=== PATIENT | female | born 1985 | race Caucasian/White ===

== ENCOUNTER 2019-06-08 15:08 | Emergency (ER) | payer MEDICAID, SELFPAY ==
[2019-06-08 15:10] VITALS: BP 134/99; PULSE 89; RESP 16; TEMP 36.7; O2SAT 97; BMI 29.3
--- NOTE | 2019-06-08 16:41 | ED.VIS.GEN ---
History of Present Illness <AshleeDavid - Last Filed: 06/08/19 16:48> Informant: Patient Onset: Weeks - 2 weeks Context: Gradual Onset Timing: Continuous Quality: aching Location: right hear Current Severity: Moderate Maximum Severity: Moderate Worsened by: nothing Relieved by: nothing Associated Symptoms: Headache Narrative: 33-year-old female who denies any significant past medical history presents to the emergency department with right ear pain and headache. Patient was sent in here today from the urgent care for mastoiditis. Patient states that the urgent care told her that she has an infection in her bone that could spread to her brain and could be fatal and they threaten to have her come by squad if she refused to drive herself to the emergency department. Patient was seen at [facility] 15 days ago for headache and right ear pain. They performed a CT scan. She was diagnosed with mastoiditis. She was discharged on Augmentin. She continues to have her symptoms followed up with the urgent care today who advised her to present to the emergency department. She has not had a fever. She is not lightheaded or dizzy. No visual changes. No nausea or vomiting. No neck pain. No sore throat or congestion or cough. No visual changes, numbness tingling or weakness, difficulty with speech or ambulation or head trauma. Prior similar symptoms: Yes Recent Illness/Hospitalization: No <Jean Paul Rabago - Last Filed: 06/08/19 17:42> Chief Complaint: Headache Past Medical History <AshleeDavid - Last Filed: 06/08/19 16:48> Prior records reviewed: Yes Past Medical History: None Surgical History: - - Surgery for ectopic removal of left tube and ovary Lives: With Family Smoking Status: Never smoker <Jean Paul Rabago - Last Filed: 06/08/19 17:42> - Allergies and Home Meds Allergies/Adverse Reactions: Allergies methylphenidate [From Ritalin] Adverse Reaction (Verified 06/08/19 15:12) Other Primary Care Physician: Care Physician,No Primary [Primary Care Provider] - Review of Systems All systems negative except as indicated General: Denies: Chills, Fever Eyes: Denies: Visual changes - left, Visual changes - right, Visual changes - bilaterally ENT: Reports: Right ear pain. Denies: Left ear pain, Rhinorrhea, Sore throat Cardiovascular: Denies: Chest pain Respiratory: Denies: Dyspnea, - Gastrointestinal: Denies: Abdominal pain, Nausea, Vomiting, Diarrhea Genitourinary: Denies: Dysuria Musculoskeletal: Denies: Neck pain, Back pain Skin: Denies: Rash, Abscess Neurological: Reports: Headache. Denies: Weakness, Parasthesia, Numbness <Jean Paul Rabago - Last Filed: 06/08/19 17:42> Physical Exam Vital Signs/Narrative: Vital Signs Temp Pulse Resp BP Pulse Ox 06/08/19 15:10 98.0 F 89 16 134/99 H 97 <David Rosado - Last Filed: 06/08/19 16:48> Vital Signs/Narrative: Vital Signs Temp Pulse Resp BP Pulse Ox 06/08/19 15:10 98.0 F 89 16 134/99 H 97 Inital Vital Signs reviewed: Yes General: Well nourished, Well developed, No Acute Distress Head: Normocephalic, Atraumatic Eyes: Perrl, EOMI ENT: Moist mucous membranes, - - Normal inspection of left external ear, ear canal and tympanic membrane. No mastoid tenderness or redness on the left. No mastoid tenderness or redness on the right. There is no evidence of otitis externa but she does have a significant cerumen impaction right ear. She has no cervical pre-or post auricular lymphadenopathy. Neck: Supple, Nontender - Patient has normal active range of motion of her neck in all directions without difficulty. No meningeal signs., No lymphadenopathy, No JVD Cardiovascular: Regular rate, Regular rhythm, No murmurs Respiratory: No distress, CTA bilaterally, Chest nontender Abdomen: Soft, Nontender, Nondistended, Normal bowel sounds, No masses Back: Nontender, Normal Inspection Extremities: Nontender, No edema Skin: Normal color, No rash Neurological: Alert, Oriented x3, Normal Strength, Normal Sensation, Normal Gait Psychological: Normal affect <Jean Paul Rabago - Last Filed: 06/08/19 17:42> Diagnostic/Tx/Re-eval - Medical Decision Making Seen and evaluated independently and in conjunction with physician assistant director of security. Agree with notes above unless documented otherwise. Patient is well-appearing, her vital signs are normal. She has no clinical signs of mastoiditis at this time. She is not a diabetic. She is not especially tender at the mastoid process, which is normal-appearing without any swelling or erythema. She is more tender in the caudal periauricular area without any palpable lymph nodes, and even more pain with manipulation of the pinna. She states she has been having ear discharge. She was placed on amoxicillin for otitis media and mastoiditis, and states that it did not help at all even after finishing the complete course. If she still has a persistent otitis, which we cannot tell at this time since she has a deep dense cerumen impaction, it would be more appropriate to start her on Augmentin than amoxicillin as in adult it would not cover H. influenza. We will remove the cerumen to the best of our ability, we are awaiting nursing to irrigate since and removing part of it the patient had difficulty tolerating it as it is very deep and densely packed in, and attempts to visualize her tympanic membrane for further evaluation. She states she has been having discharge, and that could be from a perforation. Or she could have a combination of otitis media and otitis externa, in which case we would be happy to put her on a more appropriate antibiotic and antibiotic drops. She does not have any significant canal edema or signs of discharge other than cerumen. <David Rosado - Last Filed: 06/08/19 16:48> - Medical Decision Making Initially had tried to remove the cerumen with a curette patient did not tolerate well therefore Debrox was instilled nursing staff irrigated ear on my repeat inspection there was still a significant amount of cerumen and I was having difficulty visualizing the tympanic membrane. I then again used the curette to try to remove more earwax. Before I was able to remove all of the earwax to entirely visualize the tympanic membrane patient requested I stop and would like to be discharged. I advised her I was unable to see her tympanic membrane to rule out a perforation. She understands this and still requests discharge. Because we were unable to visualize this we will cover her with Augmentin and Cortisporin otic. At this time clinically the patient is well-appearing she has no meningeal signs she is alert and oriented x3 she has a nonfocal neurological exam and I do not feel that admission repeat CT scan of her brain or other work-up is indicated. She will be referred to ENT. <Jean Paul Rabago - Last Filed: 06/08/19 17:42> ED Disposition <David Rosado - Last Filed: 06/08/19 16:48> <Jean Paul Rabago - Last Filed: 06/08/19 17:42> - Plan for ED Patient: Disposition: Home or Assisted Living Diagnosis: Otalgia of right ear Prescriptions: Amox/Clavulanate Tablet [Augmentin Tablet] 875 mg PO Q12H #20 tab Prescription Printed Neomyc/Colist/Hydrocort/Thonzn [Cortisporin-Tc Ear Suspension] 10 ml OT TID #1 drops.susp Prescription Printed Referrals: Care Physician,No Primary [Primary Care Provider] - Bárbara Norman DO [STAFF PHYSICIAN] -
[2019-06-08] MEDS: Carbamide Peroxide 15 ML Bottle 5 DRP OTIC (17:00)
[2019-06-08 17:39] VITALS: RESP 16
== END 2019-06-08 17:54 | disposition home or self-care (01) ==
PROVIDERS: Emergency Provider Physician Assistant Medical
DX: H92.01 Otalgia, right ear (principal); H61.21 Impacted cerumen, right ear
CPT/HCPCS: 99283

== ENCOUNTER 2019-07-04 11:44 | Emergency (ER) | payer MEDICAID, SELFPAY ==
[2019-07-04 11:47] VITALS: BP 131/81; PULSE 83; RESP 16; TEMP 36.4; O2SAT 96; BMI 32.5
--- NOTE | 2019-07-04 12:08 | CT_ITS ---
STUDY: CT BRAIN WITHOUT CONTRAST REASON FOR EXAM: Female, 33 years old. Headaches. Right earache. RADIATION DOSAGE (If Supplied By Facility): CTDIvol = ( 44.99 ) mGy, DLP = ( 745.49 ) mGycm TECHNIQUE: Transaxial CT imaging of the brain was performed without administration of intravenous contrast material. Individualized dose optimization techniques were used for this CT. COMPARISON: No relevant priors. FINDINGS: Normal soft tissue structures. Normal calvarium. Normal size ventricles and extra-axial spaces for the patient's age. Normal white matter tracts of the cerebral hemispheres. Normal basal ganglia and thalami. Normal brainstem. Normal cerebellum. There is no intracranial hemorrhage. There are no findings of an acute ischemic infarction. Normal visualized paranasal sinuses. CT/Brain/Head without Contrast IMPRESSION: Normal unenhanced CT scan of the brain. Electronically Signed: Andrew Mayers, at 13:11 EST , Service support ,
[2019-07-04] MEDS: Morphine 4 MG/ML Syringe IV (12:38)
[2019-07-04] MEDS: Ondansetron 4 MG/2 ML Vial IV (12:38)
[2019-07-04] MEDS: Ketorolac 30 MG/ML Syringe IV (12:38)
[2019-07-04] MEDS: 0.9% Normal Saline 1,000 ML 150 ML IV (12:39)
[2019-07-04 12:43] LABS: Absolute Neutrophil Count 3.9 X10^3/uL (2.0-7.7); Basophil# 0.03 X10^3/uL; Basophil% 0.5 % (0-1); Eosinophil# 0.17 X10^3/uL; Eosinophils% 2.6 % (0-5); Hematocrit 42.3 % (37-47); Lymphocyte % 29.3 % (19-41); Mean Corp Hgb Conc 33.1 g/dL (32-36); Mean Corpuscular Hgb 30.7 pg (27.0-32.0); Mean Corpuscular Volume 92.8 fL (81-99); Mean Platelet Vol. 10.6 fl (6.2-12.0); Monocyte# 0.44 X10^3/uL; Monocyte% 6.8 % (0-10); NRBC Flagged by Analyzer 0 % (0-5); Neutrophil # 3.92 X10^3/uL (2.7-7.7); Neutrophil % 60.5 % (47-70); Platelet Count 250 K/mm3 (150-450); RBC Distribution Width CV 13.2 % (11.6-14.6); RBC Distribution Width SD 45.6 fl (35.1-43.9); Red Blood Count 4.56 M/mm3 (4.2-5.4); White Blood Count 6.5 K/mm3 (4.4-11.0)
--- NOTE | 2019-07-04 12:43 | CT_ITS ---
INDICATION: Headaches. Right earache and changes in hearing. EXAMINATION: CT IAC TEMPORAL BONES - Internal Auditory Canals Technique: routine noncontrast CT protocol was performed of the internal auditory canals and temporal bones. 2-D reformats were performed by the technologist. A radiation dose optimization technique was used for this scan. IV Contrast dosage and agent: None. COMPARISON: None. FINDINGS: RIGHT SIDE: No fracture. SUPERFICIAL SOFT TISSUES: Unremarkable. MASTOID AIR CELLS: Opacification of the right mastoid air cells. EXTERNAL AUDITORY CANALS: Clear. MIDDLE EAR CAVITIES: Mild degree of mucosal thickening of the middle year cavity. Ossicles and scutum intact. INTERNAL AUDITORY CANALS: Unremarkable bilateral internal auditory canals. No osseous erosion or widening of the canal. INNER EAR: Unremarkable cochlea, vestibule and semicircular canals. LEFT SIDE: No fracture. SUPERFICIAL SOFT TISSUES: Unremarkable. MASTOID AIR CELLS: Well aerated, unremarkable. EXTERNAL AUDITORY CANALS: Clear. MIDDLE EAR CAVITIES: Well aerated. Ossicles and scutum intact. INTERNAL AUDITORY CANALS: Unremarkable bilateral internal auditory canals. No osseous erosion or widening of the canal. INNER EAR: Unremarkable cochlea, vestibule and semicircular canals. VISUALIZED BRAIN AND POSTERIOR FOSSA: Cerebello-pontine angles are unremarkable. CT/Orb Sella Post Fossa Ear w/o IMPRESSION: Opacification of the right mastoid air cells with mild degree of mucosal thickening of the right middle ear cavity. Electronically Signed: Andrew Mayers, at 13:18 EST , Service support ,
[2019-07-04 12:44] VITALS: BP 131/81; PULSE 83; RESP 16; TEMP 36.4; O2SAT 96
[2019-07-04 12:54] LABS: Anion Gap 4 (5-15); BUN 7 mg/dL (7-18); BUN/Creat Ratio 7.1 RATIO (10-20); Calcium,Total 8.8 mg/dL (8.5-10.1); Chloride 108 mmol/L (98-107); Creatinine, Serum 0.99 mg/dL (0.55-1.02); EST Glomerular Filtration Rate 68 mL/min (>60); Est Glom Filt Rate - Afr Amer 82 mL/min (>60); Estimated Creatinine Clearance 83.68 ml/min; Glucose 91 mg/dL (74-106); Potassium 3.9 mmol/L (3.5-5.1); Sodium Level 139 mmol/L (136-145)
--- NOTE | 2019-07-04 15:25 | ED.VIS.GEN ---
History of Present Illness Chief Complaint: Headache Detail of Chief Complaint: Right ear pain Informant: Patient Onset: Month(s) - 2+ months Current Severity: Moderate Maximum Severity: Severe Narrative: Patient presents with pain to the right ear and mastoid air cells for the last 2+ months. She had a CAT scan done naproxen to have months ago that showed evidence of mastoiditis. Patient has been on multiple antibiotics since that time. She states she continues to have pain. Her insurance just changed July 03 and she is planning on following up with her ENT. She has not noted fever or chills. She does not have rhinorrhea or throat pain. - Past Medical History (1) Kidney stones Status: Chronic (2) Anxiety Status: Chronic Past Medical History - Allergies and Home Meds Allergies/Adverse Reactions: Allergies methylphenidate [From Ritalin] Adverse Reaction (Verified 07/04/19 11:46) Other Prior records reviewed: Yes Surgical History: - - Surgery for ectopic removal of left tube and ovary Smoking Status: Never smoker Review of Systems General: Denies: Chills, Fever Eyes: Denies: Visual changes - bilaterally ENT: Reports: Right ear pain. Denies: Rhinorrhea, Sore throat Cardiovascular: Denies: Chest pain Respiratory: Denies: Dyspnea, Cough Gastrointestinal: Denies: Abdominal pain, Nausea, Vomiting, Diarrhea Genitourinary: Denies: Dysuria Musculoskeletal: Denies: Myalgias Skin: Denies: Wounds Neurological: Denies: Headache Allergy: Denies: Uticaria Physical Exam Vital Signs/Narrative: Vital Signs Temp Pulse Resp BP Pulse Ox 07/04/19 12:44 97.6 F L 83 16 131/81 H 96 07/04/19 11:47 97.6 F L 83 16 131/81 H 96 Inital Vital Signs reviewed: Yes General: Well nourished, Well developed Head: Normocephalic Eyes: Perrl, EOMI ENT: - - Minimal edema to the external ear canal. TM is unremarkable. Patient does have tenderness to palpation of the mastoid air cells. There is no erythema or edema over this area. Neck: Supple Cardiovascular: Regular rate, Regular rhythm Respiratory: No distress, CTA bilaterally Abdomen: Soft, Nontender Extremities: Nontender Skin: Normal color Neurological: Alert, Oriented x3 Psychological: Normal affect Diagnostic/Tx/Re-eval Impressions Brain CT 07/04/19 12:08 IMPRESSION: Normal unenhanced CT scan of the brain. Electronically Signed: Andrew Mayers, at 13:11 EST , Service support , CT Orbit Sella Inner 07/04/19 12:43 IMPRESSION: Opacification of the right mastoid air cells with mild degree of mucosal thickening of the right middle ear cavity. Electronically Signed: Andrew Mayers, at 13:18 EST , Service support , 07/04/19 12:08 Brain/Head without Contrast [CT] Stat 07/04/19 12:43 Orb Sella Post Fossa Ear w/o [CT] Stat Laboratory Results 07/04/19 07/04/19 12:28 12:28 WBC 6.5 RBC 4.56 Hgb 14.0 Hct 42.3 MCV 92.8 MCH 30.7 MCHC 33.1 RDW Std Deviation 45.6 H RDW Coeff of Christina 13.2 Plt Count 250 MPV 10.6 Immature Gran % (Auto) 0.300 Neut % (Auto) 60.5 Lymph % (Auto) 29.3 [place] % (Auto) 6.8 Eos % (Auto) 2.6 Baso % (Auto) 0.5 Absolute Neuts (auto) 3.9 Absolute Lymphs (auto) 1.90 Nucleated RBC % 0 Sodium 139 Potassium 3.9 Chloride 108 H Carbon Dioxide 27.0 Anion Gap 4 L BUN 7 Creatinine 0.99 Estim Creat Clear Calc 83.68 Est GFR (MDRD) Af Amer 82 Est GFR (MDRD) Non-Af 68 BUN/Creatinine Ratio 7.1 L Glucose 91 Calcium 8.8 - Medical Decision Making Patient was given a dose of morphine, Zofran, Toradol, and IV fluids while here. Test results are discussed with the patient. I spoke with Dr. Cade, on-call for ENT. He asked the patient continue on her Bactrim and follow-up with him in the office. She will call tomorrow for appointment. ED Disposition - Plan for ED Patient: Disposition: Home or Assisted Living Diagnosis: Mastoiditis Referrals: Gregory Cade MD [STAFF PHYSICIAN] - As soon as possible Additional Instructions: Continue your Bactrim. Follow-up with Dr Cade as soon as possible.
[2019-07-04 15:36] VITALS: BP 121/80; PULSE 77; RESP 14; O2SAT 97
== END 2019-07-04 15:38 | disposition home or self-care (01) ==
PROVIDERS: Emergency Provider Emergency Medicine; Family Provider Family Medicine; PCP Family Medicine
DX: H70.91 Unspecified mastoiditis, right ear (principal); F41.9 Anxiety disorder, unspecified; Z87.442 Personal history of urinary calculi; Z79.899 Other long term (current) drug therapy
CPT/HCPCS: 70450; 70480; 80048; 85025; 96361; 96374; 96375; 99283; J7030; J2405

== ENCOUNTER 2019-07-06 15:12 | Emergency (ER) | payer MEDICAID, SELFPAY ==
[2019-07-06 15:13] VITALS: BP 136/80; PULSE 99; RESP 19; TEMP 36.9; O2SAT 95; BMI 34.0
--- NOTE | 2019-07-06 15:37 | RAD_ITS ---
STUDY: X-RAY CHEST REASON FOR EXAM: Female, 33 years old. Sinus congestion, sore throat and fever. Currently being treated for mastoiditis on Bactrim. TECHNIQUE: 2 views COMPARISON: None. FINDINGS: The lungs are clear and expanded. There is no demonstrated pleural abnormality. Normal size heart. Normal mediastinum and suzan. Normal visualized pulmonary arteries. Normal visualized aortic arch and descending thoracic aorta. Normal visualized thoracic spine. Normal visualized ribs, clavicles, and shoulders. There is no demonstrated abnormality of the visualized soft tissue structures of the upper abdomen. RAD/Chest PA and Lateral IMPRESSION: Normal x-ray examination of the chest. Electronically Signed: Lana Smith MD at 16:05 EST , Service support ,
--- NOTE | 2019-07-06 15:38 | ED.VIS.GEN ---
History of Present Illness Chief Complaint: Cold Sx Informant: Patient Onset: - - Depending on symptom duration varies Context: Sudden Onset Timing: Continuous Quality: Constant right ear pain and postauricular pain, bad throat pain Location: Right ear, throat and chest Current Severity: Mild Maximum Severity: Severe Worsened by: Breathing Relieved by: Nothing Associated Symptoms: Subjective fever Narrative: Patient is a 33-year-old woman who was seen on July 04 and diagnosed with right mastoiditis and right otitis media. She has been on numerous antibiotics. She is presently on Bactrim. She has an appointment with ENT. She states she called Dr. Cade and recommended calling her primary care physician. Primary care physician referred her to the emergency department. She complains of headache, rhinorrhea, congestion, sore throat, cough. She is a smoker. She denies neck stiffness or neck pain. She denies photophobia. She has not been immunized for influenza. Prior similar symptoms: Yes Recent Illness/Hospitalization: Yes - Past Medical History (1) Anxiety Status: Chronic (2) Kidney stones Status: Chronic Past Medical History - Allergies and Home Meds Allergies/Adverse Reactions: Allergies methylphenidate [From Ritalin] Adverse Reaction (Verified 07/04/19 11:46) Other Primary Care Physician: Yrn Lemos MD [Primary Care Provider] - Prior records reviewed: Yes Surgical History: - - Surgery for ectopic removal of left tube and ovary Lives: Alone Smoking Status: Never smoker Alcohol: None Drugs: None Review of Systems General: Reports: Fever, Subjective. Denies: Chills, Malaise, Sweats Eyes: Denies: Visual changes - bilaterally, Blurred Vision - bilaterally, Diplopia ENT: Reports: Right ear pain, Rhinorrhea, Sore throat Cardiovascular: Reports: Chest pain. Denies: Palpitations, Heart racing Respiratory: Reports: Dyspnea, Cough. Denies: Sputum, Dyspnea on exertion Gastrointestinal: Denies: Abdominal pain, Nausea, Vomiting, Diarrhea Genitourinary: Denies: Dysuria, Hematuria, Frequency Musculoskeletal: Reports: Myalgias. Denies: Arthralgias, Neck pain, Back pain, Swelling, Extremity Pain Skin: Denies: Rash, Wounds Neurological: Reports: Headache. Denies: Weakness, Parasthesia, Numbness Physical Exam Vital Signs/Narrative: Vital Signs Temp Pulse Resp BP Pulse Ox 07/06/19 15:13 98.5 F 99 19 H 136/80 H 95 Inital Vital Signs reviewed: Yes General: Well nourished, Well developed, Obese, - - Appears ill. Head: Normocephalic, Atraumatic Eyes: Perrl, EOMI. Negative for: Pale conjunctiva, Scleral icterus ENT: Moist mucous membranes, TM's clear - There is evidence of serous otitis on the right side. There is dullness of the landmarks and TM., Nasal congestion. Negative for: No rhinorrhea, Sinus tenderness Neck: Supple, Nontender, No lymphadenopathy, No JVD, - - Trachea is midline. There is no stridor. There is no discomfort with movement of the trachea. Cardiovascular: Regular rate, Regular rhythm, No murmurs, Normal S1, Normal S2 Respiratory: No distress, CTA bilaterally, Chest nontender Rectal: Deferred Back: Nontender, Normal Inspection. Negative for: CVA tenderness, Spinal tenderness Extremities: Nontender, No edema Skin: Normal color, No rash, No Trauma. Negative for: Cyanosis, Diaphoresis, Jaundice Neurological: Alert, Oriented x3, Cranial nerves II-XII grossly intact, Normal Strength, Normal Sensation, Normal DTR Psychological: Depressed, Tearful Diagnostic/Tx/Re-eval Chest X-Ray - ED: 2 View, Read by ED Physician, Normal, Heart, Lungs, Mediastinum, Bony Structures, No Acute Disease, Chronic Changes, - - read at 1555 by me. Impressions Chest X-Ray 07/06/19 15:37 IMPRESSION: Normal x-ray examination of the chest. Electronically Signed: Lana Smith MD at 16:05 EST , Service support , 07/06/19 15:37 Chest PA and Lateral [RAD] Stat 07/06/19 16:00 Mucosa - Nasopharyngeal Influenza Types A,B Direct FA (GABI) - Final - Medical Decision Making We will obtain swab for influenza a and B and chest x-ray. Otherwise patient has a viral upper restaurant infection. ED Disposition - Plan for ED Patient: Disposition: Home or Assisted Living Diagnosis: Upper respiratory infection with cough and congestion, Mastoiditis of right side Instructions: BRONCHITIS, No Antibiotic (Adult) Referrals: Yrn Lemos MD [Primary Care Provider] - 10-14 Days if not better Additional Instructions: Keep your scheduled appointment with Dr. Cade for Thursday, June 12.
--- NOTE | 2019-07-06 15:57 | NURSING ---
NO OLD EKGS
[2019-07-06 17:25] VITALS: O2SAT 95
== END 2019-07-06 17:25 | disposition home or self-care (01) ==
PROVIDERS: Emergency Provider Emergency Medicine; Family Provider Family Medicine; PCP Family Medicine
DX: H70.91 Unspecified mastoiditis, right ear (principal); J02.9 Acute pharyngitis, unspecified; H65.91 Unspecified nonsuppurative otitis media, right ear; E66.9 Obesity, unspecified; F41.9 Anxiety disorder, unspecified; Z79.2 Long term (current) use of antibiotics; Z87.442 Personal history of urinary calculi; Z79.899 Other long term (current) drug therapy
CPT/HCPCS: 71046; 87804; 99283

== ENCOUNTER 2019-09-26 17:40 | Emergency (ER) | payer MEDICAID, SELFPAY ==
[2019-09-26 17:41] VITALS: BP 151/85; PULSE 107; RESP 16; TEMP 36.6; O2SAT 100; BMI 33.9
--- NOTE | 2019-09-26 18:25 | ED.VISSUMM ---
- ER Visit Summary Date of Service: 09/26/19 Chief Complaint: Vaginal bleeding and pelvic pain History of Present Illness: The patient is a 34 F history of anxiety and depression. Patient had a prior ectopic. She is AB 4 with those being miscarriages and one prior ectopic with removal of the tube. Patient states that she is had intermittent pelvic pain for weeks and vaginal bleeding. Her last menstrual period went from September 12 the . She started bleeding again the other day and today was bleeding clots and having more pain. She was seen in her FREELANCE PROGRAMMER/APP DEVELOPER physician's office had an ultrasound. The pain got worse she called them and they sent her to the ER. She denies any dysuria. No vaginal discharge. Physical Examination: Young female no acute distress vital signs stable afebrile. HEENT exam unremarkable. Neck nontender no lymphadenopathy. Lungs clear to auscultation. Heart regular rhythm rate about 105 no murmur. Abdomen obese. Soft. Suprapubic tenderness only. No peritoneal signs. Right upper and right lower quadrant unremarkable. She is moving all 4 extremities. Back nontender. Neurologically she is awake and alert with no focal motor deficits. Female nurse present in room. External exam unremarkable. No lesions. No rashes. Speculum exam small amount of blood in the vaginal vault. Dark blood. Mild active bleeding. No clots. Bimanual uterine tenderness otherwise unremarkable. No obvious masses. Test Results: CBC shows no acute abnormality. White count 9. Hemoglobin 15. Hematocrit 45. Serum test is negative Emergency Department Course and Treatment: Patient treated with IV fluids, morphine and Zofran for the pain. Pelvic exam will be performed with nurse present in the room. Treatment Plan: Follow-up with FREELANCE PROGRAMMER/APP DEVELOPER. Return if worse. Motrin and/or Tylenol for pain. Disposition: Discharge Impression: Acute vaginal bleeding and pelvic pain of uncertain etiology This note was generated with [employer] dictation software. It may contain incorrect words, spelling, and punctuation that were not noted in review of the chart prior to signing ED Disposition - Plan for ED Patient: Referrals: Yrn Lemos MD [NON-STAFF] -
[2019-09-26] MEDS: 0.9% Normal Saline 1,000 ML 1000 ML IV (18:34)
[2019-09-26] MEDS: Ondansetron 4 MG/2 ML Vial IV (18:34)
[2019-09-26 18:35] LABS: Hematocrit 45.7 % (37-47); Hemoglobin 15.3 g/dL (12.0-15.0); Mean Corp Hgb Conc 33.5 g/dL (32-36); Mean Corpuscular Hgb 30.6 pg (27.0-32.0); Mean Corpuscular Volume 91.4 fL (81-99); Mean Platelet Vol. 11.1 fl (6.2-12.0); Platelet Count 273 K/mm3 (150-450); RBC Distribution Width CV 13.6 % (11.6-14.6); White Blood Count 9.4 K/mm3 (4.4-11.0)
[2019-09-26] MEDS: morphine 8 MG/ML Syringe 6 MG IV (18:35)
[2019-09-26 18:57] LABS: Internal QC Validated? YES +Cl - CLEAR BKGD; Pregnancy, Serum, hCG Quali. NEGATIVE Negative
--- NOTE | 2019-09-26 19:25 | ED.DEP ---
ED Disposition - Plan for ED Patient: Disposition: Home or Assisted Living Instructions: Dysfunctional Uterine Bleeding Referrals: Brook Vera MD [STAFF PHYSICIAN] - As soon as possible Additional Instructions: Fluids and rest. Tylenol and Motrin for pain. Follow-up with your BANKING MANAGEMENT CONSULTING MANAGER office to get your ultrasound results and come up with a plan. Today your blood counts were normal.
[2019-09-26 19:40] VITALS: BP 140/75; PULSE 85; RESP 16; O2SAT 97
== END 2019-09-26 19:35 | disposition home or self-care (01) ==
PROVIDERS: Emergency Provider Emergency Medicine; PCP Physician Assistant
DX: N93.9 Abnormal uterine and vaginal bleeding, unspecified (principal); R10.2 Pelvic and perineal pain; Z72.0 Tobacco use
CPT/HCPCS: 84703; 85027; 96361; 96374; 96375; 99284; J7030; A4216; J2405

== ENCOUNTER 2020-02-26 22:16 | Emergency (ER) | payer MEDICAID, SELFPAY ==
[2020-02-26 22:17] VITALS: BP 146/91; PULSE 108; RESP 16; TEMP 36.8; O2SAT 96; BMI 31.0
--- NOTE | 2020-02-26 22:34 | EKG12_ITS ---
Test Reason : EDEMA Blood Pressure : / mmHG Vent. Rate : 085 BPM Atrial Rate : 085 BPM P-R Int : 146 ms QRS Dur : 080 ms QT Int : 382 ms P-R-T Axes : 046 043 045 degrees QTc Int : 454 ms Normal sinus rhythm Low voltage QRS Borderline ECG Confirmed by MONCHO MORA, ANOOP ([id number]), technical writer and editor LAYLA OVERTON ([id number]) on 02/27/2020 1:25:17 PM Referred By: DR JAIN Confirmed By:ANOOP IVAN MD
--- NOTE | 2020-02-26 22:35 | ED.DCSUM_ITS ---
- ER Visit Summary Date of Service: 02/26/20 Chief Complaint: Bilateral leg swelling History of Present Illness: The patient is a [address] Cervantes. She reports she has bilateral leg swelling that began 2 days ago. It is worse today. She describes an aching pain that is 6 out of 10 at worst and 4-10 currently. Is worsened by walking relieved by rest. She reports that she has a history of DVT when she was 16 years ago. She has not had a DVT since that time. No recent travel. She does have a family history of DVT. She does smoke. She is not on control pills. Review of systems patient complains that she always has a little headache. She denies any other complaints. Physical Examination: Vitals: Stable. Afebrile. General: Well-nourished and well-developed. Head: Normocephalic atraumatic. Neck: Supple, no lymphadenopathy. No JVD. Nontender. Cardiovascular: Regular rate and rhythm. No murmurs. Respiratory: No respiratory distress. Clear to auscultation bilaterally. Abdominal: Soft, nontender, nondistended, normal bowel sounds. No guarding, rebound, or peritoneal signs. Back: Nontender. Extremities: 1+ pitting edema lower extremities bilaterally. Mild tenderness palpation over calves bilaterally. There is no erythema or warmth to suggest infection. She is a 2+ dorsalis pedis pulse bilaterally. Skin: Normal color, no rash. Neurologic: Alert and oriented ?3. Cranial nerves II through XII are intact. Normal strength and sensation. Psych: Normal affect. Test Results: EKG is sinus at 85 with no acute changes. Troponin is negative. 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 D-dimer is negative. test is negative. LFTs are normal. CBC is normal. Chem-7 shows a creatinine 1.3. Emergency Department Course and Treatment: Patient is rested comfortably without complaint. Treatment Plan: Patient reports that she is to have an inhaler no longer does. She will be discharged with an albuterol MDI and a prescription for Lasix 20 mg p.o. daily x5 days. Instructed follow-up with her primary care physician in 3 to 5 days for another exam. Return to the emergency department for any worsening symptoms. Disposition: To home in improved and stable condition. Impression: 1. Peripheral edema. This note was generated with MDconnectMEation software. It may contain incorrect words, spelling, and punctuation that were not noted in review of the chart prior to signing ED Disposition - Plan for ED Patient: Instructions: ED Peripheral Edema, Bilateral Prescriptions: Furosemide [Lasix] 20 mg PO DAILY #5 tab Prescription Printed Albuterol Inhaler [Ventolin Hfa] 2 puff INHALATION Q4H PRN PRN #1 inhaler PRN Reason: Wheezing Prescription Printed Referrals: Nidia Cervantes PA [Primary Care Provider] - 3-5 Days
[2020-02-26 23:04] LABS: Absolute Lymphocyte Count 2.79 X10^3/uL (0.83-4.51); Absolute Neutrophil Count 5.3 X10^3/uL (2.0-7.7); Basophil# 0.04 X10^3/uL; Basophil% 0.4 % (0-1); Eosinophil# 0.34 X10^3/uL; Eosinophils% 3.7 % (0-5); Hematocrit 42.6 % (37-47); Hemoglobin 13.9 g/dL (12.0-15.0); Lymphocyte # 2.79 X10^3/ul (4.0); Lymphocyte % 30.6 % (19-41); Mean Corp Hgb Conc 32.6 g/dL (32-36); Mean Corpuscular Hgb 30.9 pg (27.0-32.0); Mean Corpuscular Volume 94.7 fL (81-99); Mean Platelet Vol. 10.2 fl (6.2-12.0); Monocyte# 0.66 X10^3/uL; Monocyte% 7.2 % (0-10); NRBC Flagged by Analyzer 0 % (0-5); Neutrophil # 5.25 X10^3/uL (2.7-7.7); Neutrophil % 57.8 % (47-70); Platelet Count 295 K/mm3 (150-450); RBC Distribution Width CV 14.4 % (11.6-14.6); White Blood Count 9.1 K/mm3 (4.4-11.0)
[2020-02-26 23:13] LABS: Internal QC Validated? YES +Cl - CLEAR BKGD; Pregnancy, Serum, hCG Quali. NEGATIVE Negative
[2020-02-26 23:16] LABS: D-Dimer Quantitative (DVT/PE) 0.44 FEU/ug/m (0.27-0.49)
[2020-02-26 23:21] LABS: AST(SGOT) 33 U/L (15-37); Alanine Aminotransfer ALT/SGPT 45 U/L (13-56); Albumin, Serum 3.4 g/dL (3.2-5.0); Alkaline Phosphatase 86 U/L (45-117); Anion Gap 4 (5-15); BUN 11 mg/dL (7-18); BUN/Creat Ratio 8.5 RATIO (10-20); Calcium,Total 8.8 mg/dL (8.5-10.1); Chloride 107 mmol/L (98-107); EST Glomerular Filtration Rate 49 mL/min (>60); Est Glom Filt Rate - Afr Amer 60 mL/min (>60); Estimated Creatinine Clearance 63.12 ml/min; Globulin 3.5 g/dL (2.2-4.2); Glucose 92 mg/dL (74-106); Protein, Total 6.9 g/dL (6.4-8.2); Sodium Level 139 mmol/L (136-145)
[2020-02-26 23:24] LABS: BNP,B-Type NATRIURETIC PEPTIDE 28.1 pg/mL (0-100)
== END 2020-02-27 00:23 | disposition home or self-care (01) ==
LOC: ED 22:37
PROVIDERS: Emergency Provider Emergency Medicine; PCP Physician Assistant
DX: R60.0 Localized edema (principal); F17.200 Nicotine dependence, unspecified, uncomplicated; F41.9 Anxiety disorder, unspecified; Z86.718 Personal history of other venous thrombosis and embolism; Z79.899 Other long term (current) drug therapy
CPT/HCPCS: 80053; 83880; 84484; 84703; 85025; 85379; 93005; 99284; A4216

== ENCOUNTER 2021-01-04 23:09 | Emergency (ER) | payer MEDICAID, SELFPAY ==
[2021-01-04 23:10] VITALS: BP 143/71; PULSE 108; RESP 20; TEMP 36.6; O2SAT 96; BMI 34.7
--- NOTE | 2021-01-04 23:16 | RAD_ITS ---
HISTORY: Trauma, foot injury EXAMINATION/TECHNIQUE: XR Foot Min 3 Views: COMPARISON: None FINDINGS: BONES/JOINTS: No acute fracture or dislocation. Preservation of the joint spaces. No sclerotic or destructive changes observed. SOFT TISSUES: No soft tissue swelling or gas. No radiopaque foreign body. RAD/Foot min 3 Views IMPRESSION: No acute bony abnormality. at 2347 Reported and signed by: James Gonzales MD Electronically Signed: James Gonzales MD at 23:46 EDT Tel , Service support ,
--- NOTE | 2021-01-04 23:17 | EDS_ITS ---
HPI History of Present Illness HPI Narrative: 35-year-old female was walking when she ran into a push mower lifting it up and then it came back down onto her left foot. This happened approximately 25 minutes prior to arrival. She denies any other injuries. She denies any bleeding. Chief Complaint: Lower Extremity Injury [facility] Medical History (Updated 01/04/21 @ 23:[address] Yasmany Thomson DO) Anxiety Kidney stones Home Medications Atorvastatin Calcium 20 mg PO DAILY 09/26/19 [History Last Taken 09/26/19] albuterol sulfate 2 puff INHALATION Q4H PRN PRN #1 inhaler 02/26/20 [Rx Last Taken Unknown] furosemide 20 mg PO DAILY #5 tab 02/26/20 [Rx Last Taken Unknown] hydroxyzine pamoate 50 mg PO TID PRN 02/26/20 [History Last Taken Unknown] mirtazapine 15 mg PO QHS 02/26/20 [History Last Taken Unknown] trazodone 100 - 200 mg PO QHS 02/26/20 [History Last Taken Unknown] venlafaxine 75 mg PO DAILY 02/26/20 [History Last Taken Unknown] Allergy/AdvReac Type Severity Reaction Status Date / Time methylphenidate AdvReac Other Verified 01/04/21 23:11 [From Ritalin] Social History (Updated 01/04/21 @ 23:[address] Yasmany Thomson, ) Smoking Status: Current every day smoker substance use type: does not use ROS ROS ED Constitutional Constitutional ED: Denies chills or weight loss Eyes Eyes: Denies change in vision or diplopia ENT ENT ED: Denies ear pain, rhinorrhea or sore throat Cardiovascular Cardiovascular: Denies chest pain, orthopnea, palpitations or racing heartbeat Respiratory/Chest Respiratory/Chest: Denies cough, dyspnea or orthopnea Gastrointestinal Gastrointestinal: Denies abdominal pain, diarrhea, nausea or vomiting Genitourinary Genitourinary ED: Denies dysuria, hematuria or urinary frequency Musculoskeletal Musculoskeletal: Reports other Details: Left foot pain see HPI ; Denies arthralgias or myalgias Integumentary Denies abscess or rash Neurologic Neurologic: Denies headache(s) or weakness Psychiatric Psychiatric: Denies anxiety, depression, suicidal ideation or suicidal thoughts Endocrine Endocrinology: Denies polydipsia, polyphagia or polyuria Allergic/Immunologic Allergic/Immunologic ED: Denies mouth swelling, tongue swelling or urticaria EXAM Physical Exam Const Vital Signs: 01/04/21 23:10 Temperature 97.8 F Temperature Source Temporal Pulse Rate 108 H Respiratory Rate 20 H Blood Pressure 143/71 H Blood Pressure Mean 95 Pulse Ox 96 Oxygen Delivery Method Room Air Positive well nourished and well developed General Appearance ED: well developed HEENT Reports normocephalic, head/scalp atraumatic and moist mucous membranes Eyes PERRL and EOMs intact bilaterally Neck no lymphadenopathy, supple and no JVD Resp normal respiratory effort and clear to auscultation bilaterally Cardio regular rate, regular rhythm and no murmurs GI normal to inspection, nondistended, normoactive bowel sounds and non-tender Palpation: soft Back/Spine no CVA tenderness and normal ROM Extremity Extremity Narrative: Patient has tenderness palpation over the dorsal surface of the left foot along the MTP joints. There is no significant swelling or ecchymosis seen. No breaks in the skin. General Extremety ED: Negative for edema General Extremity: Negative for edema Neuro oriented x3 and CN's II-XII intact bilaterally Sensorium / Orientation: alert Motor Exam: strength 5/5 throughout Psych mental status grossly normal Mood & Affect: Negative for depressed or tearful Skin no rashes or lesions noted and no wounds MDM MDM MDM Narrative Medical decision making narrative: My interpretation of the plain films of left foot is no acute fracture. Patient received ice and Motrin. She will be discharged home with supportive care follow-up if not improving return if worsening or concerns Radiography Diagnostic Testing: Radiology Impression Foot X-Ray 01/04/21 23:16 IMPRESSION: No acute bony abnormality. at 2347 Reported and signed by: James Gonzales MD Electronically Signed: James Gonzales MD at 23:46 EDT Tel , Service support , Discharge Plan Triage Chief Complaint: Lower Extremity Injury ED Provider: Yasmany Thomson Dx/Rx/DC Orders Clinical Impression: Contusion of foot, left Instructions: ED Contusion, Lower Extremity Prescriptions: No Action Atorvastatin Calcium 20 mg PO DAILY RF: 0 venlafaxine 75 MG capsule,extended release 24hr 75 mg PO DAILY RF: 0 hydroxyzine pamoate 50 MG capsule 50 mg PO TID PRN (Reason: Anxiety) RF: 0 mirtazapine 15 MG tablet 15 mg PO QHS RF: 0 trazodone 100 MG tablet 100 - 200 mg PO QHS RF: 0 albuterol sulfate 1 INHALER inhaler 2 puff inhalation Q4H PRN PRN (Reason: Wheezing) Qty: 1 RF: 0 furosemide 20 MG tablet 20 mg PO DAILY Qty: 5 RF: 0 Primary Care Provider: Nidia Cervantes Referrals: Nidia Cervantes, PA [Primary Care Provider] - 10-14 Days if not better Disposition Disposition: Home, self care
[2021-01-04] MEDS: Ibuprofen 400 MG Tablet 800 MG PO (23:43)
--- NOTE | 2021-01-04 23:59 | ED.RN ---
PT UPSET SHE DID NOT RECEIVE NARCOTICS. PT YELLING AT STAFF. CALLED THIS NURSE JOOKING RAFAEL GARCIA. REFUSED TO SIGN DME PAPERS. TOOK CRUTCHES FROM THE NURSE, YELLING AND THROWING DISCHARGE PAPERS.
== END 2021-01-05 00:03 | disposition home or self-care (01) ==
PROVIDERS: Emergency Provider Emergency Medicine; PCP Physician Assistant
DX: S90.32XA Contusion of left foot, initial encounter (principal); F41.9 Anxiety disorder, unspecified; F17.200 Nicotine dependence, unspecified, uncomplicated; Z79.899 Other long term (current) drug therapy; W22.09XA Striking against other stationary object, initial encounter; Y93.01 Activity, walking, marching and hiking; Y92.89 Other specified places as the place of occurrence of the external cause; Y99.8 Other external cause status
CPT/HCPCS: 73630; 99283

== ENCOUNTER 2021-08-22 08:26 | Outpatient (CLI) | payer MEDICAID, SELFPAY | END 2021-08-22 23:59 | disposition short-term general hospital (02) | LOC: LABSPEC 08-23 08:35 | PROVIDERS: PCP Physician Assistant; Referring Provider Otolaryngology; Visit Provider Otolaryngology | DX: H66.001 Acute suppurative otitis media without spontaneous rupture of ear drum, right ear (principal) | CPT/HCPCS: 87070; 87075; 87077; 87205 ==

== ENCOUNTER 2021-09-19 16:35 | Outpatient (CLI) | payer MEDICAID, SELFPAY ==
--- NOTE | 2021-09-19 16:40 | CT_ITS ---
STUDY: CT TEMPORAL BONES WITHOUT CONTRAST - ATTN: I.A.C. S REASON FOR EXAM: Female, 36 years old. CHRONIC MASTOIDITIS RADIATION DOSAGE (If Supplied By Facility): CTDIvol = ( 67.58 ) mGy, DLP = ( 945.72 ) mGycm TECHNIQUE: The patient was scanned in a multi detector CT scanner. Transaxial imaging was performed without the administration of intravenous contrast material. Sagittal and coronal images were reconstructed. Individualized dose optimization techniques were used for this CT. COMPARISON: None. FINDINGS: RIGHT TEMPORAL BONE Normal right internal auditory canal. There is some thickening of the right tympanic membrane and mucosal thickening within the right middle ear cavity consistent with otitis media. The ossicles appear intact. Normal right cochlea and semicircular canals. Normal vestibular aqueduct. Normal right petrous carotid artery. Normal right jugular fossa. There are moderate inflammatory changes of the right mastoid air cells consistent with moderate chronic otomastoiditis. Normal right petrous apex. LEFT TEMPORAL BONE Normal left internal auditory canal. Normal visualized ossicles and tympanic cavity. Normal left cochlea and semicircular canals. Normal vestibular aqueduct. Normal left petrous carotid artery. Normal right jugular fossa. Normal left mastoid air cells. Normal left petrous apex. CT/Orb Sella Post Fossa Ear w/o IMPRESSION: 1. Moderate right mastoiditis and right otitis media. No definite cholesteatoma. 2. Normal left temporal bone Electronically Signed: David Shi MD at 17:02 EST ,
== END 2021-09-19 23:59 | disposition home or self-care (01) ==
LOC: CT 16:36
PROVIDERS: PCP Physician Assistant; Visit Provider Otolaryngology
DX: H70.11 Chronic mastoiditis, right ear (principal)
CPT/HCPCS: 70480

== ENCOUNTER 2021-12-30 13:56 | Emergency (ER) | payer MEDICAID, SELFPAY ==
[2021-12-30 13:58] VITALS: BP 156/105; PULSE 90; RESP 24; TEMP 36.8; O2SAT 96; BMI 45.4
--- NOTE | 2021-12-30 14:33 | EKG12_ITS ---
Test Reason : Blood Pressure : / mmHG Vent. Rate : 094 BPM Atrial Rate : 094 BPM P-R Int : 142 ms QRS Dur : 084 ms QT Int : 352 ms P-R-T Axes : 059 045 064 degrees QTc Int : 440 ms Sinus rhythm with Fusion complexes Otherwise normal ECG Confirmed by MONCHO MORA, ANOOP ([id number]), script editor LEXIE MEDINA ([id number]) on 12/31/2021 1:34:28 PM Referred By: TESSIE Confirmed By:ANOOP IVAN MD
--- NOTE | 2021-12-30 14:33 | RAD_ITS ---
STUDY: X-RAY CHEST REASON FOR EXAM: Female, 36 years old. Substernal chest pain TECHNIQUE: Single AP portable view of the chest. COMPARISON: 2018 FINDINGS: EKG leads overlie the chest The lungs are clear and expanded. There is no demonstrated pleural abnormality. Normal size heart. Normal mediastinum and suzan. Normal visualized pulmonary arteries. Normal visualized aortic arch and descending thoracic aorta. Normal visualized thoracic spine. Normal visualized ribs, clavicles, and shoulders. There is no demonstrated abnormality of the visualized soft tissue structures of the upper abdomen. RAD/Chest 1 View (Portable) IMPRESSION: Normal x-ray examination of the chest. Electronically Signed: Cameron Segura MD at 14:55 EDT ,
--- NOTE | 2021-12-30 14:34 | EX.ED.DYSGE1 ---
HPI <Dr. Jeanne Campos MD - Last Filed: 12/30/21 16:56> History of Present Illness Chief Complaint: Chest Pain Informant: patient Onset/Context/Timing Onset: Today Context: Gradual Onset Current Severity: Moderate Maximum Severity: Moderate Narrative Narrative: Patient presents secondary to chest pain and shortness of breath. She states she has been under a lot of stress the last several days. Shortly after noon today she was feeling very anxious and got chest pain with shortness of breath. She does have strong family history of cardiac disease as well as blood clots. PFSH <Dr. Jeanne Campos MD - Last Filed: 12/30/21 16:56> [facility] Medical History Anxiety Kidney stones Home Medications Atorvastatin Calcium 20 mg PO DAILY 09/26/19 [History Last Taken 09/26/19] albuterol sulfate 2 puff INHALATION Q4H PRN PRN #1 inhaler 02/26/20 [Rx Last Taken Unknown] furosemide 20 mg PO DAILY #5 tab 02/26/20 [Rx Last Taken Unknown] hydroxyzine pamoate 50 mg PO TID PRN 02/26/20 [History Last Taken Unknown] mirtazapine 15 mg PO QHS 02/26/20 [History Last Taken Unknown] trazodone 100 - 200 mg PO QHS 02/26/20 [History Last Taken Unknown] venlafaxine 75 mg PO DAILY 02/26/20 [History Last Taken Unknown] Allergy/AdvReac Type Severity Reaction Status Date / Time methylphenidate AdvReac Other Verified 12/30/21 14:02 [From Ritalin] Social History Smoking Status: Current every day smoker tobacco type: cigarettes substance use type: does not use ROS <Dr. Jeanne Campos MD - Last Filed: 12/30/21 16:56> ROS ED Constitutional Constitutional ED: Denies chills or fever(s) Eyes Eyes: Denies change in vision ENT ENT ED: Denies sore throat Cardiovascular Cardiovascular: Reports chest pain Respiratory/Chest Respiratory/Chest: Reports dyspnea; Denies cough Gastrointestinal Gastrointestinal: Denies abdominal pain, diarrhea, nausea or vomiting Genitourinary Genitourinary ED: Denies dysuria Musculoskeletal Musculoskeletal: Denies back pain Integumentary Denies rash Neurologic Neurologic: Denies headache(s) or weakness Psychiatric Psychiatric: Reports anxiety Allergic/Immunologic Allergic/Immunologic ED: Denies urticaria EXAM <Dr. Jeanne Campos MD - Last Filed: 12/30/21 16:56> Physical Exam Const Vital Signs: 12/30/21 13:58 12/30/21 14:39 12/30/21 16:39 Temperature 98.2 F Temperature Source Temporal Pulse Rate 90 80 Respiratory Rate 24 H 13 Respiratory Effort Normal Non-Labored Blood Pressure 156/105 H 120/70 Blood Pressure Mean 122 86 Pulse Ox 96 94 Oxygen Delivery Method Room Air Room Air Positive well nourished and well developed General Appearance ED: well developed HEENT Reports moist mucous membranes Eyes PERRL and EOMs intact bilaterally Neck supple Chest Wall inspection of chest normal and palpation of chest normal Resp normal respiratory effort and clear to auscultation bilaterally Cardio regular rate and regular rhythm GI non-tender Palpation: soft Extremity normal to inspection Neuro oriented x3 Sensorium / Orientation: alert Psych Mood & Affect: anxious and tearful Skin no rashes or lesions noted <Dr. Yared Villa MD - Last Filed: 12/30/21 18:26> Physical Exam Const Vital Signs: 12/30/21 13:58 12/30/21 14:39 12/30/21 16:39 Temperature 98.2 F Temperature Source Temporal Pulse Rate 90 80 Respiratory Rate 24 H 13 Respiratory Effort Normal Non-Labored Blood Pressure 156/105 H 120/70 Blood Pressure Mean 122 86 Pulse Ox 96 94 Oxygen Delivery Method Room Air Room Air MDM <Dr. Jeanne Campos MD - Last Filed: 12/30/21 16:56> MDM MDM Narrative Medical decision making narrative: EKG, chest x-ray, lab work obtained. Patient given IV Ativan to help with anxiety. Lab Data Attestation: I reviewed the patient's lab results. Labs: Laboratory Results - last 24 hr 12/30/21 12/30/21 12/30/21 14:30 14:30 14:30 WBC 10.1 RBC 4.99 Hgb 15.6 H Hct 46.4 MCV 93.0 MCH 31.3 MCHC 33.6 RDW Std Deviation 44.0 H RDW Coeff of Christina 12.9 Plt Count 288 MPV 10.6 Immature Gran % (Auto) 0.500 Neut % (Auto) 54.2 Lymph % (Auto) 34.2 [place] % (Auto) 7.0 Eos % (Auto) 3.6 Baso % (Auto) 0.5 Absolute Neuts (auto) 5.5 Absolute Lymphs (auto) 3.45 Nucleated RBC % 0 D-Dimer Quant (PE/DVT) < 0.27 L Sodium 138 Potassium 3.7 Chloride 107 Carbon Dioxide 26.0 Anion Gap 5 BUN 8 Creatinine 1.03 H Estim Creat Clear Calc 64.58 Est GFR (MDRD) Af Amer 77 Est GFR (MDRD) Non-Af 64 BUN/Creatinine Ratio 7.8 L Glucose 91 Calcium 9.1 Troponin I High Sens 8 Radiography Chest X-Ray - ED: 1 View, Read by ED Physician, Normal, Heart, Lungs and Mediastinum Diagnostic Testing: Clinical Impression(s) from Imaging Studies Chest X-Ray 12/30/21 14:33 IMPRESSION: Normal x-ray examination of the chest. Electronically Signed: Cameron Segura MD at 14:55 EDT , Head/Neck CTA 12/30/21 16:34 IMPRESSION: Normal CTA Head and neck with contrast. Electronically Signed: Yrn Rdz MD at 18:01 EDT , EKG Initial EKG: Attestation: I personally reviewed and interpreted this EKG as follows: Interpretation: Sinus Rhythm (Sinus at 94 with no acute ischemia.) Treatment and Re-Evaluation Narrative: Lab work unremarkable including a negative D-dimer. On repeat evaluation patient is still complaining of head complaints. She states she has a headache and feels dizzy. She now states that this is what initially started her episode. She states that when she got up this morning she had a headache and felt dizzy and lightheaded. She felt like she might pass out. She states she had difficulty speaking to her children. She states she later had a panic attack. CTA of the head and neck is obtained at this time. Results are pending. Patient be signed out to oncoming physician. <Dr. Yared Villa MD - Last Filed: 12/30/21 18:26> [facility] MDM Narrative Medical decision making narrative: Daisy Patient was turned over to me. CTA is negative she appears well, she is stable I will discharge her in stable condition. Lab Data Labs: Laboratory Results - last 24 hr 12/30/21 12/30/21 12/30/21 14:30 14:30 14:30 WBC 10.1 RBC 4.99 Hgb 15.6 H Hct 46.4 MCV 93.0 MCH 31.3 MCHC 33.6 RDW Std Deviation 44.0 H RDW Coeff of Christina 12.9 Plt Count 288 MPV 10.6 Immature Gran % (Auto) 0.500 Neut % (Auto) 54.2 Lymph % (Auto) 34.2 [place] % (Auto) 7.0 Eos % (Auto) 3.6 Baso % (Auto) 0.5 Absolute Neuts (auto) 5.5 Absolute Lymphs (auto) 3.45 Nucleated RBC % 0 D-Dimer Quant (PE/DVT) < 0.27 L Sodium 138 Potassium 3.7 Chloride 107 Carbon Dioxide 26.0 Anion Gap 5 BUN 8 Creatinine 1.03 H Estim Creat Clear Calc 64.58 Est GFR (MDRD) Af Amer 77 Est GFR (MDRD) Non-Af 64 BUN/Creatinine Ratio 7.8 L Glucose 91 Calcium 9.1 Troponin I High Sens 8 Radiography Diagnostic Testing: Clinical Impression(s) from Imaging Studies Chest X-Ray 12/30/21 14:33 IMPRESSION: Normal x-ray examination of the chest. Electronically Signed: Cameron Segura MD at 14:55 EDT , Head/Neck CTA 12/30/21 16:34 IMPRESSION: Normal CTA Head and neck with contrast. Electronically Signed: Yrn Rdz MD at 18:01 EDT , Discharge Plan Triage Chief Complaint: Chest Pain ED Provider: Jeanne Campos Dx/Rx/DC Orders Clinical Impression: Anxiety, Dizziness, Chest pain, non-cardiac Instructions: ED Anxiety Reaction, ED Chest Pain, Noncardiac Prescriptions: No Action Atorvastatin Calcium 20 mg PO DAILY RF: 0 venlafaxine 75 MG capsule,extended release 24hr 75 mg PO DAILY RF: 0 hydroxyzine pamoate 50 MG capsule 50 mg PO TID PRN (Reason: Anxiety) RF: 0 mirtazapine 15 MG tablet 15 mg PO QHS RF: 0 trazodone 100 MG tablet 100 - 200 mg PO QHS RF: 0 albuterol sulfate 1 INHALER inhaler 2 puff inhalation Q4H PRN PRN (Reason: Wheezing) Qty: 1 RF: 0 furosemide 20 MG tablet 20 mg PO DAILY Qty: 5 RF: 0 Primary Care Provider: Nidia Cervantes Referrals: Nidia Cervantes, CALOS [Primary Care Provider] - 3-5 Days if not improving Disposition Disposition: Home, Self Care Discharge Date/Time: 12/30/21 17:21
[2021-12-30] MEDS: LORazepam 2 MG/ML Syringe 1 MG IV (14:42)
[2021-12-30 14:45] LABS: Absolute Lymphocyte Count 3.45 X10^3/uL (0.83-4.51); Absolute Neutrophil Count 5.5 X10^3/uL (2.0-7.7); Basophil# 0.05 X10^3/uL; Basophil% 0.5 % (0-1); Eosinophil# 0.36 X10^3/uL; Eosinophils% 3.6 % (0-5); Hematocrit 46.4 % (37-47); Hemoglobin 15.6 g/dL (12.0-15.0); Lymphocyte # 3.45 X10^3/ul (0.83-4.51); Lymphocyte % 34.2 % (19-41); Mean Corp Hgb Conc 33.6 g/dL (32-36); Mean Corpuscular Hgb 31.3 pg (27.0-32.0); Mean Platelet Vol. 10.6 fl (6.2-12.0); Monocyte# 0.71 X10^3/uL; NRBC Flagged by Analyzer 0 % (0-5); Neutrophil # 5.47 X10^3/uL (2.7-7.7); Neutrophil % 54.2 % (47-70); Platelet Count 288 K/mm3 (150-450); RBC Distribution Width CV 12.9 % (11.6-14.6); Red Blood Count 4.99 M/mm3 (4.2-5.4); White Blood Count 10.1 K/mm3 (4.4-11.0)
[2021-12-30 15:04] LABS: Anion Gap 5 (5-15); BUN 8 mg/dL (7-18); BUN/Creat Ratio 7.8 RATIO (10-20); Calcium,Total 9.1 mg/dL (8.5-10.1); Chloride 107 mmol/L (98-107); Creatinine, Serum 1.03 mg/dL (0.55-1.02); EST Glomerular Filtration Rate 64 mL/min (>60); Est Glom Filt Rate - Afr Amer 77 mL/min (>60); Estimated Creatinine Clearance 64.58 ml/min; Glucose 91 mg/dL (74-106); Potassium 3.7 mmol/L (3.5-5.1); Sodium Level 138 mmol/L (136-145); Troponin-I HS 8 pg/mL (3.0-54.0)
[2021-12-30 15:06] LABS: D-Dimer Quantitative (DVT/PE) < 0.27 FEU/ug/m (0.27-0.49)
--- NOTE | 2021-12-30 16:34 | CT_ITS ---
STUDY: CTA HEAD AND NECK WITH CONTRAST REASON FOR EXAM: Female, 36 years old. dizzy, speech difficulty RADIATION DOSAGE (If Supplied By Facility): CTDIvol = ( 27.35 ) mGy, DLP = ( 1543.31 ) mGycm TECHNIQUE: CT angiography was performed with a multi-detector CT scanner. Data acquisition was obtained from the skull base through the vertex following intravenous administration of IV 100mL [id number]-[id number]. MIP images were reconstructed from the axial data set. Post-processing of the angiographic images was performed, with multiplanar reformation and 3D reconstruction. Individualized dose optimization techniques were used for this CT. COMPARISON: No relevant priors. FINDINGS: Normal bilateral petrous carotid arteries. Normal right cavernous carotid artery with a normal supraclinoid bifurcation. Normal left cavernous carotid artery with a normal supraclinoid bifurcation. Normal right A1 segments of the anterior cerebral artery. Normal left A1 segments of the anterior cerebral artery. Normal intact anterior communicating artery (ACOM). Normal bilateral A2 segments of the anterior cerebral arteries. Normal right M1 and M2 segments of the middle cerebral arteries, with a normal M1 bifurcation. Normal left M1 and M2 segments of the middle cerebral arteries, with a normal M1 bifurcation. Normal right posterior communicating artery (PCOM). Normal left posterior communicating artery (PCOM). Right vertebral is dominant and normal caliber. There is mild diffuse narrowing of the left vertebral which may be normal variant. Normal basilar artery with a normal basilar bifurcation. The visualized bilateral superior cerebellar (SCA) arteries are normal. Normal bilateral P1, P2 and visualized P3 segments of the posterior cerebral arteries. There is no demonstrated aneurysm of the jamul of [place]. AORTIC ARCH: Normal visualized aortic arch. Normal origins of the brachiocephalic, left common carotid, and left subclavian arteries. RIGHT CAROTID ARTERIES: Normal right common carotid artery (CCA). Normal right common carotid bulb. Normal origin of the right internal carotid (ICA) artery without a hemodynamically significant stenosis. Normal visualized cervical portion of the right internal carotid artery. Normal origin of the right external carotid artery (ECA). LEFT CAROTID ARTERIES: Normal left common carotid artery (CCA). Normal left common carotid bulb. Normal origin of the left internal carotid (ICA) artery without a hemodynamically significant stenosis. Normal visualized cervical portion of the left internal carotid artery. Normal origin of the left external carotid artery (ECA). VERTEBRAL ARTERIES: Right vertebral is dominant and normal caliber. Mild diffuse narrowing of the left vertebral. CT/CTA Head AND Neck W/ Contrast IMPRESSION: Normal CTA Head and neck with contrast. Electronically Signed: Yrn Rdz MD at 18:01 EDT ,
[2021-12-30 16:39] VITALS: BP 120/70; PULSE 80; RESP 13; O2SAT 94
--- NOTE | 2021-12-30 17:51 | ED.RN ---
pt up to void while results still pending. c/o dizziness when up still. assisted to br with slow gait. occas loss of balance when moves too quick.
[2021-12-30 18:32] VITALS: BP 147/98; PULSE 82; RESP 16; O2SAT 98
== END 2021-12-30 18:33 | disposition home or self-care (01) ==
PROVIDERS: Emergency Provider Emergency Medicine; PCP Physician Assistant; Visit Provider Emergency Medicine
DX: R07.89 Other chest pain (principal); R42 Dizziness and giddiness; F17.210 Nicotine dependence, cigarettes, uncomplicated; F41.9 Anxiety disorder, unspecified; Z56.6 Other physical and mental strain related to work; R06.02 Shortness of breath; Z82.49 Family history of ischemic heart disease and other diseases of the circulatory system; Z79.899 Other long term (current) drug therapy
CPT/HCPCS: 70496; 70498; 71045; 80048; 84484; 85025; 85379; 93005; 96374; 99284; Q9967; A4216

== ENCOUNTER 2025-01-25 15:06 | Emergency (ER) | payer SELFPAY ==
[2025-01-25 15:06] VITALS: BP 155/107; PULSE 113; RESP 22; TEMP 36.6; O2SAT 98; BMI 39.4
[2025-01-25 17:10] VITALS: BP 120/82; PULSE 76; RESP 14; O2SAT 97
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
--- NOTE | 2025-01-25 17:40 | RAD_ITS ---
PROCEDURE: CHEST PA AND LATERAL 01/25/2025 REASON FOR EXAM: CHEST PAIN TECHNIQUE: CHEST PA AND LATERAL COMPARISON: Chest radiograph 12/30/2021. FINDINGS: Hardware: None. Heart: The heart size is normal. Mediastinum: The mediastinal contour is unremarkable. Lungs: No focal consolidation, pleural effusion or pneumothorax. Bones: The bones are unremarkable. RAD/Chest PA and Lateral IMPRESSION: NEGATIVE CHEST Reading Location: [id number]
[2025-01-25 17:46] LABS: Absolute Lymphocyte Count 2.29 X10^3/uL (0.83-4.51); Absolute Neutrophil Count 6.8 X10^3/uL (2.0-7.7); Basophil# 0.05 X10^3/uL; Basophil% 0.5 % (0-1); Eosinophil# 0.21 X10^3/uL; Eosinophils% 2.1 % (0-5); Hematocrit 43.7 % (37-47); Hemoglobin 14.8 g/dL (12.0-15.0); Lymphocyte # 2.29 X10^3/ul (0.83-4.51); Lymphocyte % 22.7 % (19-41); Mean Corp Hgb Conc 33.9 g/dL (32-36); Mean Corpuscular Volume 91.4 fL (81-99); Mean Platelet Vol. 10.7 fl (6.2-12.0); Monocyte# 0.72 X10^3/uL; Monocyte% 7.1 % (0-10); NRBC Flagged by Analyzer 0 % (0-5); Neutrophil # 6.77 X10^3/uL (2.7-7.7); Neutrophil % 67.1 % (47-70); Platelet Count 264 K/mm3 (150-450); RBC Distribution Width CV 13.4 % (11.6-14.6); RBC Distribution Width SD 45.6 fl (35.1-43.9); Red Blood Count 4.78 M/mm3 (4.2-5.4); White Blood Count 10.1 K/mm3 (4.4-11.0)
[2025-01-25 17:51] VITALS: BP 113/79; PULSE 71; RESP 27; O2SAT 94
[2025-01-25] MEDS: Ketorolac 15 MG/ML Vial IV (17:55)
[2025-01-25] MEDS: LORazepam 0.5 MG Tablet PO (17:55)
[2025-01-25 18:10] LABS: ALB/GLOB Ratio 1.4 RATIO (0.9-2.4); AST(SGOT) 15 U/L (<=31); Alanine Aminotransfer ALT/SGPT 10 U/L (<=34); Albumin, Serum 4.2 g/dL (3.5-5.0); Alkaline Phosphatase 70 U/L (35-104); Anion Gap 11 (5-15); BUN 14 mg/dL (4-19); BUN/Creat Ratio 14.8 RATIO (10-20); Calcium,Total 9.2 mg/dL (7.6-11.0); Carbon Dioxide 20.4 mmol/L (21.0-32.0); Chloride 105 mmol/L (98-108); Creatinine, Serum 0.93 mg/dL (0.70-1.20); EST Glomerular Filtration Rate 79 (>60); Estimated Creatinine Clearance 94.64 ml/min (50-250); Globulin 2.9 g/dL (2.2-4.2); Glucose 88 mg/dL (70-99); Potassium 4.2 mmol/L (3.3-5.1); Protein, Total 7.1 g/dL (5.9-8.4); Sodium Level 137 mmol/L (133-145); Total Bilirubin 0.54 mg/dL (0.00-1.30)
[2025-01-25 18:34] LABS: Troponin T High Sensitivity < 6 ng/L (<=14)
[2025-01-25 19:00] VITALS: BP 114/96; PULSE 69; RESP 20; O2SAT 99
[2025-01-25 19:06] LABS: Mucous, Urine 0 SEEN /hpf (<or=2+)
[2025-01-25 19:14] LABS: Internal QC Validated? YES +Cl - CLEAR BKGD
[2025-01-25 19:15] LABS: Pregnancy, Urine Negative Negative; Record Kit Lot#,Urine Preg 947241
[2025-01-25 19:23] LABS: Color, Urine Yellow (Yellow); Glucose, Dipstick Normal (Normal); Ketone-Dipstick Negative (Negative); Leukocyte Esterase-Dipstick 500 /ul (Negative); Nitrite-Dipstick Negative (Negative); Occult Blood-Urine 10 /ul (Negative); Protein-Dipstick 15 mg/dl (Negative); Specific Gravity, Urine 1.025 (1.002-1.030); Urine Bilirubin Dipstick Negative (Negative); Urine Clarity Sl. Cloudy (Clear); Urine Urobilinogen Normal (Normal)
[2025-01-25 19:53] LABS: Troponin T High Sens 2 HR < 6 ng/L (<=14)
[2025-01-25 20:12] LABS: Red Blood Cells-Urine 0-5 SEEN /hpf (0-5); White Blood Cells 25-50 SEEN /hpf (0-5)
[2025-01-25 20:13] LABS: Bacteria 1+ /hpf (None Seen); Squamous Epithelial Cells - UA 5-10 SEEN /hpf (5-10)
[2025-01-25 21:00] VITALS: BP 107/66; PULSE 69; RESP 16; O2SAT 97
[2025-01-25] MEDS: metroNIDAZOLE 500 MG Tablet PO (21:29)
[2025-01-25 21:38] VITALS: BP 107/66; PULSE 72; RESP 16; TEMP 36.7; O2SAT 100
== END 2025-01-25 21:39 | disposition home or self-care (01) ==
PROVIDERS: Emergency Provider Emergency Medicine; Visit Provider Emergency Medicine
DX: F41.9 Anxiety disorder, unspecified (principal); A59.9 Trichomoniasis, unspecified; R06.4 Hyperventilation; F17.210 Nicotine dependence, cigarettes, uncomplicated; R30.0 Dysuria; R51.9 Headache, unspecified; R20.2 Paresthesia of skin
CPT/HCPCS: 71046; 80053; 81001; 81025; 84484; 85025; 87077; 87086; 87088; 87186; 87210; 87491; 87591; 93005; 96374; 99285; A4216